=== PATIENT | male | born 1965 | race Caucasian/White ===

== ENCOUNTER 2016-03-09 12:34 | Emergency (ER) | payer MEDICAID ==
[~2016-03-09] VITALS: Wt 77.0 kg
[2016-03-09] MEDS ORDERED: HYDR-906 PO (14:20)
[2016-03-09] MEDS ORDERED: NAPR-260 PO (14:20)
[2016-03-09] MEDS ORDERED: CYCL-319 PO (14:20)
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
== END 2016-03-09 15:06 | disposition home or self-care (01) ==
LOC: FTE 12:34
DX: S39.92XA Unspecified injury of lower back, initial encounter (principal); V43.62XA Car passenger injured in collision with other type car in traffic accident, initial encounter
CPT/HCPCS: 99284